=== PATIENT | female | born 2000 | race Caucasian/White ===

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

== ENCOUNTER 2020-09-03 02:06 | Emergency (ER) | payer MEDICAID ==
[~2020-09-03] VITALS: Ht 157.5 cm; Wt 52.2 kg
[2020-09-03] MEDS ORDERED: cefTRIAXone 1GM/50ML D5W 50 ML IV ONE (08:30)
[2020-09-03 10:27] VITALS: BP 109/70
== END 2020-09-03 11:33 | disposition home or self-care (01) ==
LOC: ER 02:06
DX: J03.90 Acute tonsillitis, unspecified (principal); M54.2 Cervicalgia
CPT/HCPCS: 70490; 87880; 96365; 99285; J0696